=== PATIENT | female | born 1965 | race Caucasian/White ===

== ENCOUNTER → 2017-03-14 | Outpatient (CLI) | payer OTHER | END | disposition home or self-care (01) | LOC: GMA 10:03 | PROVIDERS: ATTEND Nurse Practitioner Family | DX: R53.83 Other fatigue (principal) ==

== ENCOUNTER → 2017-05-31 | Outpatient (CLI) | payer OTHER ==
--- NOTE | 2017-06-02 08:25 | US ---
EXAM DESCRIPTION: Soft Tissue,Head/Neck CLINICAL HISTORY: 51 years Female, DYSPHAGIA COMPARISON: None. TECHNIQUE: Real-time sonographic images of the thyroid are obtained. FINDINGS: Right lobe thyroid measures 5.0 x 1.8 x 1.5 cm. There is a more cystic and solid nodule in the upper pole measuring 9 x 6 x 7 mm without abnormal calcification. Small hypoechoic well-circumscribed 5 x 3 x 4 mm nodule seen in the lower pole of the right lobe. The isthmus measures 3 mm in thickness. Left lobe thyroid measures 3.7 x 1.6 x 1.5 cm. There is a hypoechoic complex cyst or solid nodule in the posterior upper pole measuring 5 x 5 x 4 mm without abnormal calcifications or increased vascularity. IMPRESSION: 3 small nodules of the thyroid are seen measuring less than 1 cm. No suspicious imaging characteristics are seen. Consider follow-up imaging in one year. Electronically signed by: Michael Cervantes MD 06/02/2017 8:24 AM CDT
== END | disposition home or self-care (01) ==
LOC: US 16:12
PROVIDERS: ATTEND Nurse Practitioner Family
DX: R13.0 Aphagia (principal); R13.10 Dysphagia, unspecified

== ENCOUNTER → 2020-01-30 | Outpatient (CLI) | payer OTHER | LOC: LAB.O 14:42 | PROVIDERS: ATTEND Family Medicine | DX: M25.50 Pain in unspecified joint (principal) ==